=== PATIENT | male | born 1940 | race Caucasian/White ===

== ENCOUNTER 2022-07-22 06:42 | Outpatient (CLI) | payer MEDICARE, BC ==
[~2022-07-22] VITALS: Ht 165.1 cm; Wt 127.9 kg
[2022-07-22] MEDS ORDERED: TMSL.4C PO (16:21)
[2022-07-22] MEDS ORDERED: LANS30CA PO (16:21)
[2022-07-22] MEDS ORDERED: RT-ALBUINH INH (16:21)
[2022-07-22] MEDS ORDERED: LATA7.5D OU (16:21)
[2022-07-22] MEDS ORDERED: ASPI-999 PO (16:21)
[2022-07-22] MEDS ORDERED: TIMO1DRO8 OU (16:21)
[2022-07-22] MEDS ORDERED: TADA5TAB13 PO (16:21)
[2022-07-22] MEDS ORDERED: LISI1TAB48 PO (16:21)
[2022-07-22] MEDS ORDERED: ATOR20TA66 PO (16:21)
[2022-07-22] MEDS ORDERED: NAPR-1073 PO (16:21)
[2022-07-22] MEDS ORDERED: CITA20TA9 PO (16:21)
[2022-07-22] MEDS ORDERED: FURO20TA4 PO (16:21)
== END 2022-07-22 16:30 | disposition home or self-care (01) ==
LOC: PREOP 06:42
PROVIDERS: ATTEND Surgery
DX: Z01.818 Encounter for other preprocedural examination (principal)

== ENCOUNTER 2022-07-29 11:43 | Day surgery (SDC) | payer MEDICARE, BC ==
[~2022-07-29] VITALS: Ht 165.1 cm; Wt 127.9 kg
[2022-07-29] VITALS (10 sets, daily range): BP systolic 105–151; BP diastolic 60–85
[~2022-07-29 11:43] MED LIST: ASPI-999 PO; ATOR20TA66 PO; CITA20TA9 PO; FURO20TA4 PO; LANS30CA PO; LATA7.5D OU; LISI1TAB48 PO; NAPR-1073 PO; RT-ALBUINH INH; TADA5TAB13 PO; TIMO1DRO12 OU; TMSL.4C PO
[2022-07-29] MEDS ORDERED: BUP/EPI 0.5% 1:200,000 (SENSORCAINE) 30 ML VIAL INJ ONE (12:00)
[2022-07-29] MEDS ORDERED: NS (IVPB) 50 ML ONE (12:10)
[2022-07-29] MEDS ORDERED: ceFAZolin INJECTION 2,000 MG ONE (12:10)
[2022-07-29] MEDS ORDERED: ceFAZolin INJECTION 2,000 MG in NS (IVPB) 50 ML IV ONE (12:15)
[2022-07-29] MEDS ORDERED: LACTATED RINGERS 1,000 ML IV PRN (12:15)
--- NOTE | 2022-07-29 13:38 | Progress Note-Pre Operative ---
Pre-Operative Progress Note Date H&P Reviewed: July 29, 2022 Time H&P Reviewed: 11:54 History & Physical: H&P Reviewed, Patient Examed, No changes noted Pre-Operative Diagnosis: Back mass TIM TRIPP DO July 29, 2022 13:38
--- NOTE | 2022-07-29 13:39 | Progress Note-Post Operative ---
Post-Operative Progess Note Surgeon (s)/Living Manager (s) Surgeon TIM TRIPP DO Living Manager: ELIZABETH Espinal student Pre-Operative Diagnosis Back mass Post-Operative Diagnosis same pending path Procedure & Operative Findings Date of Procedure 07/29/22 Procedure Performed/Findings Exc of Back Mass, 5.6cm incision Subcutaneous Anesthesia Type General Estimated Blood Loss Estimated blood loss (mL): less than 20ml Specimens/Packing Specimens Removed back mass measuring 3.8 x 4.7 x 1.6cm TIM TRIPP DO July 29, 2022 13:39
[2022-07-29] MEDS ORDERED: ACHYD1T PO (13:40)
--- NOTE | 2022-07-29 13:43 | Discharge Inst-Surgical ---
Discharge Inst-Surgical Depart Medication/Instructions New, Converted or Re-Newed RX: Transmitted to Pharmacy Patient Instructions Follow up Appt: Make appointment for 1 week. [phone] Instructions: No lifting greater than 20 pounds. No strenuous activity. May shower in 24 hours, no tub bath or soaking. Use incentive spirometer at home as directed. No Smoking Skin/Wound Care: May remove bandages in am. You need to leave the stitches in place and come to clinic to have them removed. Symptoms to Report: Appetite Changes, Extremity Discoloration, Numbness/Tingling, Swelling Increased, Bleeding Excessive, Eyesight Changes, Pain Increased, Urine Color Change, Constipation(Persistent), Fever over 101 degree F, Pain/Pressure in chest, Urinating Difficulty, Cough Up/Vomit Blood, Heart Beat Irreg/Pounding, Pain/Pressure in jaw, Cramps in feet or legs, Lightheadedness, Pain/Pressure in shoulder, Diarrhea(Persistent), Memory Changes Suddenly, Questions/Concerns, Weight gain consecutive days, Dizziness/Fainting, Nausea/Vomiting, Shortness of Breath, Weight gain over 2 pounds If questions or concerns contact your physician Or seek help at emergency department. Activity Activity as Tolerated: Yes Activity Instructions: Avoid Stress to Incision Driving Instructions: No Driving/Refer to Dr. Richard Discharge Diet: No Restrictions Diet After 24 Hours: Clear Liquid if Nauseous If Any Problems/Questions/Issu: Contact Your Physician, Go to Emergency Room Skin/Wound Care Infection Signs and Symptoms: Increased Redness, Foul Odor of Wound, Increased Drainage, Skin Itchy or Has a Rash, Increased Swelling, Temperature Above 101 F Bathing Instructions: Shower Stitches/[place]/Dermabond Dis: Care of Stitches TIM TRIPP DO July 29, 2022 13:43
--- NOTE | 2022-07-29 23:18 | OPERATIVE REPORT ---
DATE OF SERVICE: 07/29/2022 PREOPERATIVE DIAGNOSIS: Back mass. POSTOPERATIVE DIAGNOSIS: Back mass, pending pathology. PROCEDURE: Excision of back mass, 5.6 cm incision. SURGEON: Barak Lundy DO GLASS SCIENCE ENGINEER: ELIZABETH Butts student. ANESTHESIA: General. SPECIMENS: Back mass. BLOOD LOSS: Less than 20 mL FLUIDS: Per anesthesia. POSTOPERATIVE CONDITION: Stable. INDICATIONS FOR PROCEDURE: The patient is an 81-year-old male who had a mass on his back that would continually draining, wanted to get this fixed, thought was to do possible I and D depending on what we found. FINDINGS: The patient had a most likely a sebaceous cyst, could see a cyst sac and cavity. This was removed completely. DESCRIPTION OF PROCEDURE: After informed consent was obtained, the patient was brought to the operating room. He was intubated, placed on the table in the right lateral decubitus position. He was then sterilely prepped and draped in normal fashion. Local lidocaine was used to infiltrate the skin over this small opening then elected to make an incision with #15 blade, carried down through skin into subcutaneous tissue and got out some purulent fluid and liquid and some sebaceous material, opened this up to about a 5.6 cm incision, could see the inner lining of the sac, elected to then remove the sac with Bovie electrocautery, dissecting around it, completely removing this. This measured about 3.8 x 4.7 cm deep x 1.6 cm tall, removed this en bloc and passed this off table. Bleeding was then controlled with Bovie electrocautery, copiously irrigated with normal saline. Once it was determined there was no bleeding, we made sure we got all the sac out. This was all subcutaneous and above the fascia. I then elected to close the incision with 2-0 nylon, 3 vertical mattress sutures that kind of hold this tissue together, but to leave it slightly open in case there was some drainage. Area was then cleaned and dried. Dressing placed and the patient was transferred to recovery room in stable condition. Sponge and needle count correct at the the end of the case. Job ID: [id number] DocumentID: [id number] Dictated Date: 07/29/2022 14:43:59 [employer] Superintendent Date: 07/29/2022 23:16:00 Dictated By: BARAK LUNDY DO
== END 2022-07-29 15:15 ==
LOC: SDC 11:43
PROVIDERS: ATTEND Surgery
DX: L72.0 Epidermal cyst (principal); E66.01 Morbid (severe) obesity due to excess calories; Z68.42 Body mass index [BMI] 45.0-49.9, adult; Z87.891 Personal history of nicotine dependence
CPT/HCPCS: 87081